=== PATIENT | female | born 1985 | race Caucasian/White ===

== ENCOUNTER 2016-11-12 09:30 | Emergency (ER) | payer BC ==
[~2016-11-12 09:30] MED LIST: ACCUTANE10 MG PO; AFRIN15 ML NS; ALPHA LIPOIC A PO; ATIVAN0.5 MG PO; CALCIUM CARBON500 M2 PO; CARAFATE1 G2 PO; CLINDAMYCIN HC300 M2 PO; COZAAR25 M1 PO; ELAVIL10 MG PO; ERYTHROMYCIN60 ML PO; EXCEDRIN MIGRA1 EAC3 PO; FLONASE ALLERG9.9 ML; HUMALOG100 U/ML SQ; HUMALOG100 UNIT/1; IMITREX25 MG PO; IMITREX6 MG/0. SQ; KLOR-CON20 MEQ PO; LEVAQUIN250 M1 PO; LEVAQUIN500 M1 PO; LEVAQUIN500 MG PO; LEVAQUIN750 M1 PO; PHENERGAN25 M1 PO; PRENATAL-U CAPS1 CAP PO; PRILOSEC OTC20 M1 PO; PROMETHAZINE12.5 M2 PO; PROTONIX40 M1 PO; PROTONIX40 M2 PO; REGLAN10 MG PO; SUPER B COMPL PO; TRANSDERM-SCOP1 EACH TD; TRINESSA1 TAB PO; TYLENOL WITH C1 EACH PO; UNISOM25 M1 PO; ZOFRAN ODT4 MG SL; ZOFRAN4 MG PO; ZYRTEC1010 PO
[2016-11-12 10:02] LABS: BASO % 0.2 % (0-2); EOS % 0.1 % (0-7); HGB-HEMOGLOBIN 11.8 gm/dl (12.0-15.5); IMMATURE GRANULOCYTES ABSOLUTE 0.04 tho/cmm (0-0.03); IMMATURE GRANULOCYTES PERCENT 0.3 % (0-0.3); LYMPH ABSOLUTE COUNT 1.7 tho/cmm (0.8-4.5); MCH (MEAN CORPUSCULAR HGB) 29.1 pg (28.0-32.0); MCHC MEAN CORPUSCULAR HGB CONC 34.7 % (32.0-36.0); MEAN PLATELET VOLUME 11.9 cmc (9.4-12.4); MONOCYTE ABSOLUTE COUNT 0.5 tho/cmm (0.0-1.2); NEUTROPHIL ABSOLUTE COUNT 9.7 tho/cmm (1.6-8.0); NEUTROPHIL-AUTOMATED 9.7 tho/cmm (1.6-8.0); NEUTROPHILS % 81.4 % (40-80); PLATELET COUNT 194 tho/cmm (150-450); RED BLOOD COUNT 4.05 mil/cmm (4.00-5.20); RED CELL DISTRIBUTION WIDTH 13.1 % (12.4-16.4); WHITE BLOOD COUNT 11.9 tho/cmm (4.0-10.0)
[2016-11-12 10:13] LABS: ALB/GLOB RATIO 0.9 (0.8-2.0); ALBUMIN 3.5 g/dl (3.5-5.0); ALKALINE PHOSPHATASE 67 U/L (33-138); ALT/SGPT 19 U/L (12-78); ANION GAP 15 mmol/L (0-20); AST/SGOT 16 U/L (10-40); BILIRUBIN,TOTAL 0.6 mg/dl (0-1.5); BLOOD UREA NITROGEN 8 mg/dl (6-24); CALCIUM 8.1 mg/dl (8.5-10.5); CARBON DIOXIDE-VENOUS 21 mmol/L (22-32); CHLORIDE 104 mmol/l (96-110); CREATININE 0.62 mg/dl (0.50-1.10); GLUCOSE 223 mg/dL (70-110); SODIUM 137 mmol/L (135-145); eGFR VALUE FOR BLACK >90 mL/Min
[2016-11-12 10:14] LABS: URINE BILIRUBIN NEGATIVE (NEG); URINE BLOOD SMALL (NEG); URINE GLUCOSE (UA) LARGE (NEG); URINE KETONE LARGE (NEG); URINE LEUKOCYTE ESTERASE NEGATIVE (NEG); URINE NITRITE NEGATIVE (NEG); URINE PH 6.5 (5.0-8.0); URINE PROTEIN MODERATE (NEG)
[2016-11-12 10:18] LABS: URINE APPEARANCE CLEAR; URINE COLOR PALE YELLOW
[2016-11-12 10:21] LABS: URINE EPITHELIAL CELLS 0-2 /[HPF] (0-10); URINE WBC RARE /[HPF] (0-5)
== END 2016-11-12 12:50 ==
LOC: EDMED 09:30
PROVIDERS: Emergency Medicine
DX: O24.011 Pre-existing type 1 diabetes mellitus, in pregnancy, first trimester (principal); E10.65 Type 1 diabetes mellitus with hyperglycemia; O21.0 Mild hyperemesis gravidarum; Z3A.01 Less than 8 weeks gestation of pregnancy; Z79.4 Long term (current) use of insulin; Z96.41 Presence of insulin pump (external) (internal)
CPT/HCPCS: C9113; J2550; J2765; J7030